=== PATIENT | male | born 1990 | race Caucasian/White ===

== ENCOUNTER 2017-08-16 20:18 | Emergency (ER) | payer OTHER ==
[~2017-08-16] VITALS: Ht 172.7 cm; Wt 70.0 kg
[~2017-08-16 20:18] MED LIST: AMOX500T PO; CORTI10A AS
[2017-08-16 20:20] VITALS: BP 127/73; PULSE 76; RESP 16; TEMP 98.4; O2SAT 97
--- NOTE | 2017-08-16 21:13 | PD ---
HPI Chief Complaint: Injury Time Seen by Provider: 21:05 Travel History International Travel<30 days: No Contact w/Intl Traveler<30days: No Traveled to known affect area: No History of Present Illness HPI 27-year-old [id number] white male presents to emergency department with complaints of a right hand injury while helping move tree limbs prior to arrival. He states that his friend dropped his end causing him to lose control the piece of wood. He states that his hand went down to the ground with the wood pinching it on the ground. He's having pain in his proximal right index finger. He denies any numbness or tingling. Pain is mild to moderate. Worse with movement. No other injury. Up-to-date with immunizations. PFSH Past Medical History Asthma: Yes Diminished Hearing: No Immunizations Current: No Tetanus Vaccination: < 5 Years Past Surgical History Surgical History: No Previous Surgery Social History Alcohol Use: Yes (OCCASIONAL) Tobacco Use: Yes (3/4 PPD) Substance Use: No Allergies-Medications (Allergen,Severity, Reaction): Coded Allergies: No Known Allergies (Verified , 08/16/17) Reported Meds & Prescriptions Reported Meds & Active Scripts Active Diclofenac Sodium DR (Diclofenac Sodium) 75 Mg Tabdr 75 Mg PO BID Review of Systems Except as stated in HPI: all other systems reviewed are Neg Physical Exam Narrative GENERAL: This is a well-nourished, well-developed patient, in no apparent distress. SKIN: No rashes, ecchymoses or lesions. Warm and dry. HEAD: Atraumatic. Normocephalic. EYES: PERRL, EOMI, no discharge or injection. No scleral icterus. EARS: Clear NOSE: Nasal turbinates appear normal. THROAT: Mucosa pink and moist. Airway patent. NECK: Trachea midline. supple, moves head freely. LUNGS: Clear to auscultation. CV: Regular in rhythm. ABDOMEN: Soft nontender. EXT: Examination of the right hand reveals pain to the proximal phalanx of the index finger into the second MCP joint. The skin is intact. There is no erythema or warmth. He has slightly decreased range of motion. He has no pain in the middle phalanx or distal phalanx. Refill with intact sensation. The remainder of the head is unremarkable. No pain in the wrist, elbow or shoulder. The left upper extremity as well as lower extremities are unremarkable for acute bony tenderness or deformity. Neurovascular intact. Data Data Last Documented VS Vital Signs Date Time Temp Pulse Resp B/P (MAP) Pulse Ox O2 Delivery O2 Flow Rate FiO2 08/16/17 20:20 98.4 76 16 127/73 (91) 97 Orders Orders Hand, Complete ([place]as[place]) (08/16/17 21:09) Ice/Cold Pack (08/16/17 21:09) Ibuprofen (Motrin) (08/16/17 21:45) Acetamin-Hydrocod 325-5 Mg ([place] 5-325 (08/16/17 21:45) MDM Medical Decision Making Medical Screen Exam Complete: Yes Emergency Medical Condition: Yes Medical Record Reviewed: Yes Interpretation(s) Right hand: Negative for acute bony injury Differential Diagnosis MDM: High Differential diagnoses: Fracture, sprain, strain, dislocation, contusion, neurovascular injury Narrative Course X-rays negative. Patient's given Lortab 5 and Motrin 800 mg by mouth This right hand contusion Diagnosis Primary Impression: Contusion of right hand Qualified Codes: S60.221A - Contusion of right hand, initial encounter Patient Instructions: General Instructions Med/Other Pt SpecificInfo: Prescription(s) given Scripts Diclofenac Sodium DR (Diclofenac Sodium DR) 75 Mg Tabdr 75 MG PO BID, #20 TAB 0 Refills Prov: Carlos A Singer MD 08/16/17 Disposition: 01 DISCHARGE HOME Condition: Stable Robert Valadez Aug 16, 2017 21:13
[2017-08-16] MEDS ORDERED: DICL75TA PO (21:40)
[2017-08-16] MEDS ORDERED: ACETAMINOPHEN/HYDROcodone 325 MG/5 MG TAB PO ONE (21:45)
[2017-08-16] MEDS ORDERED: IBUPROFEN 800 MG TAB PO ONE (21:45)
--- NOTE | 2017-08-16 23:12 | RADRPT ---
EXAM DATE/TIME: 08/16/2017 21:25 [facility] COMPARISON: No previous studies available for comparison. INDICATIONS : Pain in 2nd digit. From carrying a tree and it landed on 2nd digit. MEDICAL HISTORY : None. SURGICAL HISTORY : None. ENCOUNTER: Initial ACUITY: 1 day PAIN SCORE: 0/10 LOCATION: Bilateral chest FINDINGS: No fracture is seen. There is soft tissue swelling at the second digit around the PIP region. Joints are normally aligned. CONCLUSION: Soft tissue swelling. Ashwin Smith MD on August 16, 2017 at 23:09 Board Certified Radiologist. This report was verified electronically.
== END 2017-08-16 21:54 | disposition home or self-care (01) ==
LOC: NEPK 20:18
DX: S60.221A Contusion of right hand, initial encounter (principal); W23.0XXA Caught, crushed, jammed, or pinched between moving objects, initial encounter; Y93.H2 Activity, gardening and landscaping
CPT/HCPCS: 73130; 99283

== ENCOUNTER 2018-02-17 23:45 | Emergency (ER) | payer OTHER ==
[~2018-02-17] VITALS: Ht 172.7 cm; Wt 72.0 kg
[~2018-02-17 23:45] MED LIST changes: -AMOX500T PO; -CORTI10A AS; +DICL75TA PO
[2018-02-17 23:52] VITALS: BP 138/76; PULSE 70; RESP 16; TEMP 98.7; O2SAT 100
== END 2018-02-18 01:21 | disposition left against medical advice (07) ==
LOC: NETRI 23:45
DX: T14.8XXA Other injury of unspecified body region, initial encounter (principal); Z53.21 Procedure and treatment not carried out due to patient leaving prior to being seen by health care provider
CPT/HCPCS: 99281